=== PATIENT | female | born 1985 | race Caucasian/White ===

== ENCOUNTER → 2016-04-10 | Outpatient (CLI) | payer OTHER ==
--- NOTE | 2016-04-10 12:07 | US ---
Early OB Pelvic Ultrasound (Transabdominal and Endovaginal) with color flow and spectral Doppler History: Vaginal bleeding for 2 weeks. Slightly increasing beta hCG value of 2070 yesterday. Previous hemorrhagic cyst right ovary on outside ultrasound unavailable for review.. Comparison: Prior pelvic ultrasound from November 19, 2014 Findings: The pelvis was first examined through a moderately distended bladder from TRANSABDOMINAL approach. UTERUS: Size: 6.6 x 3.7 x 5.5 cm in longitudinal, AP, and transverse projections. Orientation: Retroflexed. Uterine Masses: None seen. Endometrium: Not well delineated. ADNEXA: The left ovary is normal in appearance with small follicles. The right ovary is not well del ineated. The pelvis was then evaluated from ENDOVAGINAL approach after the bladder was emptied to better evalu ate the uterus and adnexa. UTERUS: Orientation: Retroflexed. Masses: None. Endometrium: Normal measuring 5 mm in thickness. Intrauterine fluid collection or gestational sac is not visualized. ADNEXA: Normal-appearing follicles are seen associated with the left ovary. Follicles are also noted associated with the right ovary. There is a possible hemorrhagic cyst measuring about 1.5 cm associat ed with the right ovary that demonstrates increase in color flow enhancement. This could potentially represent focus of ectopic . Right ovary size: 3.4 x 3.1 x 2.3 cm Left ovary size: 3 x 1.6 x 3 cm Color flow and spectral Doppler: Normal color flow imaging with normal Doppler waveform bilaterally. There is once again increased color flow enhancement associated with the hemorrhagic cystic component of the right ovary. Free fluid: There is a small amount of physiologic free fluid in the cul-de-sac.. Other findings: None. Impression: 1. No evidence of intrauterine . 2. No definite ectopic is visualized. However, there is increased color flow enhancement as sociated with the hemorrhagic cyst right ovary. 3. No significant free fluid in the cul-de-sac. These findings were discussed by telephone with Dr. Sharron Banuelos at 1202 hours.
== END ==
LOC: FIMAGING 09:55
PROVIDERS: ATTEND Obstetrics & Gynecology
DX: N93.8 Other specified abnormal uterine and vaginal bleeding (principal)